=== PATIENT | male | born 1970 | race Caucasian/White ===

== ENCOUNTER 2017-12-19 06:39 | Observation (INO) ==
[2017-12-19] MEDS ORDERED: 0.9 % Sodium Chloride 500 ML IVC ONE (07:02)
[2017-12-19] MEDS ORDERED: Aspirin 81 MG TAB.CHEW PO ONE (07:02)
[2017-12-19] MEDS ORDERED: Ondansetron 4 MG/2 ML VIAL IVP ONE (07:02)
--- NOTE | 2017-12-19 07:25 | Emergency Department Note ---
Disposition Clinical Impression: Chest pain Qualifiers: Chest pain type: other chest pain Qualified Code(s): R07.89 - Other chest pain ; R07.8 - Other chest pain Disposition: Admitted As Inpatient Condition: Fair Chest Pain HPI - General Chief Complaint: ED Chest Pain Stated Complaint: CP Time Seen by Provider: 12/19/17 06:45 Source: patient Mode of arrival: private vehicle Limitations: no limitations Vital Signs Reviewed: Yes Nursing Notes Reviewed: Yes - History of Present Illness HPI Narrative: Patient arrives by private auto for eval of chest pain that began acutely at 3: 30 this AM. It woke him up. He was diaphoretic and "a little short of breath." He got out of bed and took a shower, then started getting ready for work. The pain did not worsen with exertion. It was at times worse with deep inspitration. Transient radiation of pain into left side of neck. Pain located in left upper chest - infraclavicular area. Not reproducible with palpation of chest or movement of LUE. No recent trauma / injury. He describes the pain now as "just a little bit of tightness." No pleuritic component at this time. Normal stress test in July 2016 per his report. No hx of cath or cabg. Pt complaint: chest pain Onset (ago): hour(s) (3:30am today) Duration: constant (now "just a little tight" per patient) Onset: during rest, awoke with symptoms Pain Location: left chest Severity: moderate Severity scale (1-10): 7 Quality: tightness, aching, heaviness, sharp Pain Radiation: neck (left jace-lateral) Improves with: nothing Worsens with: nothing Context: recent illness (URI this month, was better but has had dry cough x 2 days) Associated symptoms: Reports: nausea, diaphoresis, dyspnea ("A little bit earlier but none now."). Denies: vomiting Treatments prior to arrival chest pain: none - Related Data Home Medications Medication Instructions Recorded Confirmed Albuterol Sulfate [Albuterol 2 puff IH Q6HR PRN 01/04/15 01/04/15 Inhaler] Previous Rx's Medication Instructions Recorded Amoxicillin 875 mg PO BID #20 tablet 03/03/17 Promethazine/Codeine 5 ml PO QPM PRN #60 ml 12/04/17 [Phenergan/Codeine] Allergies Allergy/AdvReac Type Severity Reaction Status Date / Time No Known Allergies Allergy Verified 12/19/17 06:50 All systems ED: reviewed and negative except as stated. Review of Systems: As Per HPI Constitutional: Denies: fever, chills, weakness Eyes: Denies: vision change Cardiovascular: Reports: as per HPI, chest pain. Denies: palpitations, dyspnea on exertion, orthopnea, syncope Respiratory: Reports: as per HPI, cough, dyspnea. Denies: wheezes, hemoptysis, stridor, sputum production Gastrointestinal: Reports: as per HPI, nausea. Denies: abdominal pain, vomiting , diarrhea, constipation Musculoskeletal: Denies: back pain, joint swelling, arthralgia Neurological: Denies: headache, weakness, numbness, paresthesias, confusion, vertigo Hematological/Lymphatic: Denies: easy bleeding, easy bruising Chest Pain PMH - Past Medical History Medical history: Reports: COPD Psychiatric history: Reports: no psych history Prior Cardiac Testing/Procedures: Stress Test (July 2016 "Normal" per patient) - Social History Smoking Status: Never smoker Alcohol use: Reports: none Drug use: Reports: none Physical Exam - General Limitations: no limitations General appearance: alert, in no apparent distress - Head Head exam: atraumatic, normocephalic, normal inspection - Eye Eye exam: Present: normal appearance, PERRL. Absent: scleral icterus, conjunctival injection, periorbital swelling - ENT ENT exam: mucous membranes moist - Neck Neck exam: Present: normal inspection, full ROM, trachea midline - Chest Chest inspection: Present: normal inspection, symmetric chest wall rise. Absent : tenderness - Respiratory Respiratory exam: Present: normal lung sounds bilaterally. Absent: respiratory distress, wheezes, stridor, accessory muscle use, prolonged expiratory phase - Cardiovascular Cardiovascular exam: Present: normal rhythm, tachycardia, normal heart sounds. Absent: systolic murmur, diastolic murmur - Abdominal Exam Abdominal exam: Present: soft, Non-Tender. Absent: distention, guarding, rebound, rigidity, organomegaly, ascites, mass, pulsatile mass - Extremities Exam Extremities exam: Present: normal inspection, full ROM, normal capillary refill. Absent: pedal edema - Expanded Lower Extremity Exam Gait: observed and normal - Neurological Exam Neurological exam: Present: alert, oriented X3, CN II-XII intact, normal gait - Psychiatric Psychiatric exam: Present: normal affect, anxious - Skin Skin exam: Present: warm, dry, intact, normal color Course Course Narrative: EKG reviewed by Dr. Araujo. She states that it does not show a STEMI. Patient brought to room 16 for evaluation. He reports chest pain that began acutely at 3:30 this AM. It woke him up. He was diaphoretic and "a little short of breath." He got out of bed and took a shower, then started getting ready for work. The pain did not worsen with exertion. It was at times worse with deep inspitration. Transient radiation of pain into left side of neck. Pain located in left upper chest - infraclavicular area. Not reproducible with palpation of chest or movement of LUE. No recent trauma / injury. He describes the pain now as "just a little bit of tightness." No pleuritic component at this time. 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 Increased frequency of cough past 2 days. Non-productive, no hemoptysis. He has had no recent sugery / procedure. Well's score is 4.5. HR is 101. No personal or Fam hx of TAD or aneurysm, AAA or dissection. EKG done in triage, shows isolated ST elevation in AVR - 1mm with no reciprocal changes. Labs, fluids and meds ordered. CXR ordered. Case discussed with Dr. Najera. He has had face to face time with the patient and agrees with the assessment and plan. 08:22 still waiting for Troponin. Called lab to check ETA. Per Sajan, the line was down. He has restarted it and we should have results in about 20 min. Troponin is normal. Ddimer is normal. CXR normal. Patient to be admitted for r/ o. Hospitalist ramon. Vital Signs Temperature 98.2 F 12/19/17 06:48 Pulse Rate 101 12/19/17 06:48 Respiratory Rate 20 12/19/17 06:48 Blood Pressure 138/96 12/19/17 06:48 O2 Sat by Pulse Oximetry 99 12/19/17 06:48 Temperature 98.2 F 12/19/17 06:48 Pulse Rate 101 12/19/17 06:48 Respiratory Rate 20 12/19/17 06:48 Blood Pressure 138/96 12/19/17 06:48 O2 Sat by Pulse Oximetry 99 12/19/17 06:48 Chest Pain - Medical Records Medical records reviewed: Yes I reviewed the patient's medical records. - Lab Data Lab results reviewed: Yes I reviewed the patient's lab results. Lab results narrative: Laboratory Last Values WBC 9.0 K/mcL (4.3-11.1) 12/19/17 07:12 RBC 5.31 M/mcL (4.19-5.50) 12/19/17 07:12 Hgb 15.8 g/dL (12.9-16.9) 12/19/17 07:12 Hct 47.5 % (37.5-50.1) 12/19/17 07:12 MCV 89.5 fL (83.0-100.0) 12/19/17 07:12 MCH 29.8 pg (28.0-33.3) 12/19/17 07:12 MCHC 33.3 g/dL (31.6-35.5) 12/19/17 07:12 RDW 12.9 % (11.5-14.5) 12/19/17 07:12 Plt Count 268 K/mcL (140-400) 12/19/17 07:12 MPV 9.5 fL (9.4-12.4) 12/19/17 07:12 Immature Gran % 0.2 % (0-4) 12/19/17 07:12 Seg Neutrophils % 60.4 % 12/19/17 07:12 Lymphocytes % 28.3 % 12/19/17 07:12 Monocytes % 6.2 % 12/19/17 07:12 Eosinophils % 4.0 % 12/19/17 07:12 Basophils % 0.9 % 12/19/17 07:12 Neutrophils # 5.4 K/mcL (1.6-8.9) 12/19/17 07:12 Lymphocytes # 2.6 K/mcL (0.6-4.6) 12/19/17 07:12 Monocytes # 0.6 K/mcL (0.0-1.3) 12/19/17 07:12 Eosinophils # 0.4 K/mcL (0.0-0.6) 12/19/17 07:12 Basophils # 0.1 K/mcL (0.0-0.2) 12/19/17 07:12 D-Dimer 247 ng/mLFEU (0-500) 12/19/17 07:12 Sodium 136 mEq/L (136-145) 12/19/17 07:12 Potassium 3.9 mEq/L (3.5-5.1) 12/19/17 07:12 Chloride 108 mEq/L (98-107) H 12/19/17 07:12 Carbon Dioxide 21 mEq/L (23-29) L 12/19/17 07:12 BUN 19 mg/dL (6-20) 12/19/17 07:12 Creatinine 0.93 mg/dL (0.70-1.30) 12/19/17 07:12 Est GFR ( Amer) > 60 (> 60) 12/19/17 07:12 Est GFR (Non-Af Amer) > 60 (> 60) 12/19/17 07:12 BUN/Creatinine Ratio 20 (6-26) 12/19/17 07:12 Glucose 121 mg/dL (70-105) H 12/19/17 07:12 Calculated Osmolality 286 (280-300) 12/19/17 07:12 Calcium 9.4 mg/dL (8.6-10.3) 12/19/17 07:12 Total Bilirubin 0.4 mg/dL (0.3-1.0) 12/19/17 08:00 Direct Bilirubin 0.0 mg/dL (0.0-0.2) 12/19/17 08:00 Indirect Bilirubin 0.4 mg/dL (0.0-1.2) 12/19/17 08:00 AST 18 Units/L (13-39) 12/19/17 08:00 ALT 27 Units/L (7-52) 12/19/17 08:00 Alkaline Phosphatase 95 Units/L (34-104) 12/19/17 08:00 Troponin I < 0.03 ng/mL (< 0.04) 12/19/17 07:12 Serum Total Protein 7.2 g/dL (6.4-8.9) 12/19/17 08:00 Albumin 4.3 g/dL (3.5-5.7) 12/19/17 08:00 Globulin 2.9 g/dL (2.4-3.5) 12/19/17 08:00 Albumin/Globulin Ratio 1.5 (1.1-2.2) 12/19/17 08:00 Lipase 25 Units/L (11-82) 12/19/17 07:12 - Radiology Data Radiology results reviewed: Yes I reviewed the patient's radiology results. Chest X-Ray 12/19/17 07:02 IMPRESSION: No acute process. D/ / Ronald Montelongo MD / Ronald Montelongo MD Interpreting Provider: Ronald Montelongo MD - EKG Data EKG attestation: Yes I reviewed and interpreted this EKG. EKG shows normal: sinus rhythm Rate: tachycardia Rhythm: NSR Power/QRS: normal When compared to previous EKG there are: changes noted Interpretation: nonspecific ST-T wave changes (ST elevation in AVR) Heart Score - Score History: Moderately Suspicious EKG: Non Specific repolarisation Disturbance Age: 45-65 Risk Factors: 1-2 risk factors Troponin: 1-3x normal limit HEART Score Total: 5
[2017-12-19 07:26] LABS: Basophils # 0.1 K/mcL (0.0-0.2); Basophils % 0.9 %; Eosinophils # 0.4 K/mcL (0.0-0.6); Hematocrit 47.5 % (37.5-50.1); Hemoglobin 15.8 g/dL (12.9-16.9); Immature Granulocytes % 0.2 % (0-4); Lymphocytes # 2.6 K/mcL (0.6-4.6); Lymphocytes % 28.3 %; Mean Corpuscular HGB Conc 33.3 g/dL (31.6-35.5); Mean Corpuscular Hemoglobin 29.8 pg (28.0-33.3); Mean Corpuscular Volume 89.5 fL (83.0-100.0); Mean Platelet Volume 9.5 fL (9.4-12.4); Monocytes # 0.6 K/mcL (0.0-1.3); Monocytes % 6.2 %; Neutrophils # 5.4 K/mcL (1.6-8.9); Platelet Count 268 K/mcL (140-400); Red Blood Count 5.31 M/mcL (4.19-5.50); Red Cell Distribution Width 12.9 % (11.5-14.5); Segmented Neutrophils % 60.4 %
--- NOTE | 2017-12-19 07:46 | Emergency Department Note ---
Disposition Clinical Impression: Chest pain Qualifiers: Chest pain type: other chest pain Qualified Code(s): R07.89 - Other chest pain Disposition: Admitted As Inpatient Condition: Fair General Adult HPI - General Chief complaint: ED Chest Pain Stated complaint: CP Time Seen by Provider: 12/19/17 06:45 Source: patient Mode of arrival: private vehicle Limitations: no limitations - History of Present Illness Pain Scale: 7 - Related Data Home Medications Medication Instructions Recorded Confirmed Albuterol Sulfate [Proair Hfa] 2 puff IH Q6H PRN 12/19/17 12/19/17 Fluticasone Propionate Nasal 2 spr NS DAILY 12/19/17 12/19/17 [Flonase] Fluticasone/Vilanterol [Breo 2 puff IH DAILY 12/19/17 12/19/17 Ellipta 100-25 Mcg INH] Allergies Allergy/AdvReac Type Severity Reaction Status Date / Time No Known Allergies Allergy Verified 12/19/17 06:50 Past Medical History - Past Medical History Medical history: Reports: no medical history Psychiatric history: Reports: no psych history - Social History Smoking Status: Never smoker Smokeless Tobacco Status: No Alcohol use: Reports: none Drug use: Reports: none Physical Exam - General Limitations: no limitations General appearance: alert, in no apparent distress Course Vital Signs Temperature 98.2 F 12/19/17 06:48 Pulse Rate 101 12/19/17 06:48 Respiratory Rate 20 12/19/17 06:48 Blood Pressure 138/96 12/19/17 06:48 O2 Sat by Pulse Oximetry 99 12/19/17 06:48 Temperature 98.2 F 12/19/17 12:14 Pulse Rate 85 12/19/17 12:14 Respiratory Rate 16 12/19/17 12:14 Blood Pressure 121/80 12/19/17 12:14 O2 Sat by Pulse Oximetry 96 12/19/17 12:14 Oxygen Delivery Oxygen Delivery Room Air Medical Decision Making - Lab Data Result diagrams: 12/19/17 07:12 12/19/17 07:12 Lab Results 12/19/17 12/19/17 12/19/17 Range/Units 07:12 07:12 07:12 WBC 9.0 (4.3-11.1) K/mcL RBC 5.31 (4.19-5.50) M/mcL Hgb 15.8 (12.9-16.9) g/dL Hct 47.5 (37.5-50.1) % MCV 89.5 (83.0-100.0) fL MCH 29.8 (28.0-33.3) pg MCHC 33.3 (31.6-35.5) g/dL RDW 12.9 (11.5-14.5) % Plt Count 268 (140-400) K/mcL MPV 9.5 (9.4-12.4) fL Immature Gran % 0.2 (0-4) % Seg Neutrophils % 60.4 % Lymphocytes % 28.3 % Monocytes % 6.2 % Eosinophils % 4.0 % Basophils % 0.9 % Neutrophils # 5.4 (1.6-8.9) K/mcL Lymphocytes # 2.6 (0.6-4.6) K/mcL Monocytes # 0.6 (0.0-1.3) K/mcL Eosinophils # 0.4 (0.0-0.6) K/mcL Basophils # 0.1 (0.0-0.2) K/mcL D-Dimer 247 (0-500) ng/mLFEU Sodium (136-145) mEq/L Potassium (3.5-5.1) mEq/L Chloride (98-107) mEq/L Carbon Dioxide (23-29) mEq/L BUN (6-20) mg/dL Creatinine (0.70-1.30) mg/dL Est GFR ( Amer) (> 60) Est GFR (Non-Af Amer) (> 60) BUN/Creatinine Ratio (6-26) Glucose (70-105) mg/dL Calculated Osmolality (280-300) Calcium (8.6-10.3) mg/dL Total Bilirubin (0.3-1.0) mg/dL Direct Bilirubin (0.0-0.2) mg/dL Indirect Bilirubin (0.0-1.2) mg/dL AST (13-39) Units/L ALT (7-52) Units/L Alkaline Phosphatase (34-104) Units/L Troponin I (< 0.04) ng/mL Serum Total Protein (6.4-8.9) g/dL Albumin (3.5-5.7) g/dL Globulin (2.4-3.5) g/dL Albumin/Globulin Ratio (1.1-2.2) Lipase 25 (11-82) Units/L 12/19/17 12/19/17 Range/Units 07:12 08:00 WBC (4.3-11.1) K/mcL RBC (4.19-5.50) M/mcL Hgb (12.9-16.9) g/dL Hct (37.5-50.1) % MCV (83.0-100.0) fL MCH (28.0-33.3) pg MCHC (31.6-35.5) g/dL RDW (11.5-14.5) % Plt Count (140-400) K/mcL MPV (9.4-12.4) fL Immature Gran % (0-4) % Seg Neutrophils % % Lymphocytes % % Monocytes % % Eosinophils % % Basophils % % Neutrophils # (1.6-8.9) K/mcL Lymphocytes # (0.6-4.6) K/mcL Monocytes # (0.0-1.3) K/mcL Eosinophils # (0.0-0.6) K/mcL Basophils # (0.0-0.2) K/mcL D-Dimer (0-500) ng/mLFEU Sodium 136 (136-145) mEq/L Potassium 3.9 (3.5-5.1) mEq/L Chloride 108 H (98-107) mEq/L Carbon Dioxide 21 L (23-29) mEq/L BUN 19 (6-20) mg/dL Creatinine 0.93 (0.70-1.30) mg/dL Est GFR ( Amer) > 60 (> 60) Est GFR (Non-Af Amer) > 60 (> 60) BUN/Creatinine Ratio 20 (6-26) Glucose 121 H (70-105) mg/dL Calculated Osmolality 286 (280-300) Calcium 9.4 (8.6-10.3) mg/dL Total Bilirubin 0.4 (0.3-1.0) mg/dL Direct Bilirubin 0.0 (0.0-0.2) mg/dL Indirect Bilirubin 0.4 (0.0-1.2) mg/dL AST 18 (13-39) Units/L ALT 27 (7-52) Units/L Alkaline Phosphatase 95 (34-104) Units/L Troponin I < 0.03 (< 0.04) ng/mL Serum Total Protein 7.2 (6.4-8.9) g/dL Albumin 4.3 (3.5-5.7) g/dL Globulin 2.9 (2.4-3.5) g/dL Albumin/Globulin Ratio 1.5 (1.1-2.2) Lipase (11-82) Units/L Attestation Statement - Attestation Attestation: I examined this patient and my medical decision-making was reviewed with the LIAISON OFFICER/PA/Advanced Practice Nurse/Resident Physician. I agree with the documented findings, disposition and treatment plan as described except to the extent set forth below. I did see the patient is spoke with him and examine him and also spoke with his daughter who is in the room and the patient does have chest discomfort radiating to the left neck with associated diaphoresis and dyspnea which woke him from sleep at 3:30 and has been constant since that time. No pleuritic aspect. No radiation to the back. No exertional component. Does have some mild swelling around the ankles according to the patient which is not new for him. He has had what he calls a chest cold for the last 1 month and has had similar intermittent symptoms of chest discomfort during this time. I did review his EKG and this does show sinus tachycardia with a rate of 101, Q waves inferiorly as well as less than [address] elevation in lead aVR and I did look at a previous EKG which does not show any change in aVR or nightly showing that time from June [id number] so we are awaiting the troponin testing the patient will be admitted to the hospital. [id number]
[2017-12-19 08:30] LABS: Albumin 4.3 g/dL (3.5-5.7); Albumin/Globulin Ratio 1.5 (1.1-2.2); Bilirubin,Indirect 0.4 mg/dL (0.0-1.2); Bilirubin,Total 0.4 mg/dL (0.3-1.0); Globulin 2.9 g/dL (2.4-3.5); Total Protein 7.2 g/dL (6.4-8.9)
[2017-12-19 08:42] LABS: BUN/Creatinine Ratio 20 (6-26); Blood Urea Nitrogen 19 mg/dL (6-20); Calcium 9.4 mg/dL (8.6-10.3); Carbon Dioxide 21 mEq/L (23-29); Chloride 108 mEq/L (98-107); Glucose 121 mg/dL (70-105); Osmolality,Calculated 286 (280-300); Potassium 3.9 mEq/L (3.5-5.1); Sodium 136 mEq/L (136-145); eGFR For Non-African Americans > 60 (> 60)
[2017-12-19 09:00] LABS: Troponin I < 0.03 ng/mL (< 0.04)
[2017-12-19] MEDS ORDERED: Naloxone 0.4 MG/ML INJ IVP PRN (11:44)
[2017-12-19] MEDS: (Fluticasone/Vilanterol [Breo Ellipta 100-25 Mcg Inh] IH SCH (12:22)
[2017-12-19] MEDS: Fluticasone Propionate Nasal 50 MCG/SPRAY BOTTLE NS SCH (12:56)
--- NOTE | 2017-12-19 13:25 | Internal Med History&Physical ---
Date of Encounter: 12/19/17 Time of Encounter: 12:19 Internal Medicine - H&P: HPI Chief complaint: chest pain Admitted From: Home History of present illness: Mr. Bowie is a 47 year old male with past medical history of COPD, asthma who came in complaining of chest pain which started at 3:30 AM that woke him up. He had associated diaphoresis and mentioned that he was drenched in sweat. Pain was located on the left side of his chest which radiated to his neck and mildly on his left arm. It was discomfort and heaviness feeling. Somewhat worsens with deep inspiration. About 7/10 in intensity. He has associated my shortness of breath. He did not take any medication at home. Chest pain continued until the time he had to work at 5:00. He also continued to have significant diaphoresis so he came to ER. He recently was treated for upper respiratory tract infection about 3-4 weeks ago. He has history of CP in past and had Stress ECHO last year which was negative for ischemia. He has not had any chest pain since last year. He denies any lightheadedness or palpitation. He complains of some tingling in his fingertips and toes, some dizziness and blurry vision on and off for past few months and wonders if he is diabetic. Currently does not have the diagnosis of diabetes. He has significant family history with 2 uncles who had MIs in their 40s, father had NV in 50. He is nonsmoker. Past Med Surg Social Fam HX - Past Medical History Medical history: no medical history Psychiatric history: no psych history - Past Surgical History Surgical History: non-contributory Additional surgical history: perianal fistulectomy - Social History Smoking Status: Never smoker Smokeless Tobacco Status: No Alcohol use: none Drug use: none Current living situation: Home - Independent Activity Level: Independent ambulation - Family History Mother Living Status: Still Living Hx Family Cardiac Disorders: Yes (NV HTN) Father Living Status: Still Living Hx Family Cardiac Disorders: Yes (NV triple AAA) Maternal Grandfather Living Status: Hx Family Cardiac Disorders: Yes (NV) Hx Family Neurologic Disorders: Yes (CVA) Internal Medicine - H&P: Meds Albuterol Sulfate [Proair Hfa] 2 puff IH Q6H PRN 12/19/17 [History] Fluticasone Propionate Nasal [Flonase] 2 spr NS DAILY 12/19/17 [History] Fluticasone/Vilanterol [Breo Ellipta 100-25 Mcg INH] 2 puff IH DAILY 12/19/17 [ History] 3 Allergy/AdvReac Type Severity Reaction Status Date / Time No Known Allergies Allergy Verified 12/19/17 06:50 All Systems PM: A 10-system review of systems was performed and is negative for pertinent findings except as documented above in the HPI. - Constitutional Vitals: Temp Pulse Resp BP Pulse Ox 98.2 F 85 16 121/80 96 12/19/17 12:14 12/19/17 12:14 12/19/17 12:14 12/19/17 12:14 12/19/17 12:14 General appearance: Present: A&O X 3, no acute distress Exam: Constitutional: Vitals as noted. Conversant. No Apparent Distress. Well grommed. Obese. No obvious deformities. Eyes exam: Sclera white, conjunctiva clear, no lid lag, PEARLA. ENT exam: Grossly normal hearing. Nasophargeal and Oropharyngeal exam unremarkable. Moist mucus membranes. No JVD, carotid bruit, no cervical lymphadenopathy. no thyromegaly or mass. Respiratory exam: Clear to auscultation bilaterally. No accessory muscle use, rales, rhonchi or wheezes Cardiovascular exam: RRR, +S1, +S2. no murmur, gallop, rubs. No chest wall tenderness GI/Abdominal exam: Soft, Non-tender, Non-distended, normal bowel sounds, soft, no peritoneal signs. no orgenomegaly or mass appreciated. no hernia. Musculoskeletal exam: full ROM, no atrophy or deformity noted. no edema or cyanosis, warm, pulses palpable and symmetrical in UE/LE. no calf tenderness. Neurological exam: AO X3, CN II-XII grossly intact, grossly normal motor and sensory exam. Skin exam: No skin rash, lesions or ulcers noted. no purpura or ecchymosis. Pych: Good insight and judgment. Intact memory. AOx3. Mood and affect Internal Med - H&P Results - Labs CBC & Chem 7: 12/19/17 07:12 12/19/17 07:12 Labs: Cardiac Enzymes 12/19/17 Range/Units 12:45 Troponin I < 0.03 (< 0.04) ng/mL - EKG Data -: EKG Interpreted by Myself EKG shows normal: sinus rhythm Rate: normal, tachycardia (ST elevated in aVR. No reciprocal changes noted) - Assessment and plan (1) Chest pain Current Visit: Yes Status: Acute Assessment and plan: Atypical chest pain - Troponin negative x2. EKG with non-specific changes(ST elevation in aVR, HR 101). Received ASA in ER. Currently chest pain free. CXR unremarkable. - Non-smoker. Significant Family history of early NV. stress echo last year unremarkable. - Will trend one more troponin - Likely needs stress test. Will consult cardiology for appropriate stress test. Qualifiers: Chest pain type: precordial pain Qualified Code(s): R07.2 - Precordial pain (2) COPD (chronic obstructive pulmonary disease) Current Visit: Yes Status: Acute Assessment and plan: Has component of both COPD and allergic asthma - Currently well controlled. No signs of exacerbation. Is being followed by pulmonology as outpatient. - Continue home Breo and as needed albuterol Qualifiers: Qualified Code(s): J44.9 - Chronic obstructive pulmonary disease, unspecified (3) Asthma Current Visit: Yes Status: Acute Qualifiers: Qualified Code(s): J45.909 - Unspecified asthma, uncomplicated (4) Hyperglycemia Current Visit: Yes Status: Acute Assessment and plan: - Will obtain HbA1c and Lipid profile to evaluate for additional risk factors. - Time Spent With Patient Total time spent is greater than 50% in coordination of care (as documented) at patient's floor/unit and/or counseling patient:
[2017-12-19] MEDS: Acetaminophen 325 MG TABLET PO PRN ×2 (14:43→20:03)
[2017-12-20] MEDS ORDERED: Regadenoson 0.4 MG/5 ML SYRINGE IVP ONE (05:49)
[2017-12-20 08:14] LABS: Alanine Aminotransferase 25 Units/L (7-52); Albumin 3.7 g/dL (3.5-5.7); Albumin/Globulin Ratio 1.2 (1.1-2.2); Alkaline Phosphatase 82 Units/L (34-104); Aspartate Amino Transferase 22 Units/L (13-39); BUN/Creatinine Ratio 16 (6-26); Bilirubin,Total 0.5 mg/dL (0.3-1.0); Blood Urea Nitrogen 15 mg/dL (6-20); Calcium 9.2 mg/dL (8.6-10.3); Carbon Dioxide 16 mEq/L (23-29); Chloride 109 mEq/L (98-107); Chol/HDL Ratio 6.3 (0-4.9); Cholesterol 202 mg/dL (< 200); Globulin 3.1 g/dL (2.4-3.5); Glucose 91 mg/dL (70-105); HDL Cholesterol 32 mg/dL (40-59); LDL Cholesterol,Calculated 137 mg/dL (0-99); Osmolality,Calculated 286 (280-300); Potassium 4.4 mEq/L (3.5-5.1); Sodium 138 mEq/L (136-145); Total Protein 6.8 g/dL (6.4-8.9); Triglycerides 167 mg/dL (< 150); eGFR For Non-African Americans > 60 (> 60)
[2017-12-20] MEDS: Fluticasone Propionate Nasal 50 MCG/SPRAY BOTTLE NS SCH (10:23)
--- NOTE | 2017-12-20 12:01 | Internal Med Progress Note ---
Hospitalist Progress Note - Encounter Date of Encounter: 12/20/17 Time of Encounter: 11:54 - Exam Vitals: Temp Pulse Resp BP Pulse Ox 98.5 F 89 16 121/82 95 12/20/17 11:46 12/20/17 11:46 12/20/17 11:46 12/20/17 11:46 12/20/17 11:46 Exam: PHYSICAL EXAMINATION: GENERAL: The patient is a well-developed, well-nourished male in no apparent distress. He is alert and oriented x3. HEENT: Head is normocephalic and atraumatic. Extraocular muscles are intact. Pupils are equal, round, and reactive to light and accommodation. NECK: Supple. No carotid bruits. No lymphadenopathy or thyromegaly. LUNGS: Clear to auscultation. CHEST: Left pectoral tenderness to palpation along left sternal border. Mild increase in pain with range of motion HEART: Regular rate and rhythm, S1, S2 without murmur rubs or gallops. ABDOMEN: Soft, nontender, and nondistended. Positive bowel sounds. No hepatosplenomegaly was noted. EXTREMITIES: Without any cyanosis, clubbing, rash, lesions or edema. NEUROLOGIC: No facial droop or slurred speech SKIN: No ulceration or induration present. - Assessment and Plan (1) Chest pain Current Visit: Yes Status: Acute Assessment and Plan: Atypical chest pain. left sided, infraclavicular pain radiating to the left neck However given his presentation with diaphoresis, shortness of breath, dizziness , palpitations and given his family history we will rule out ACS Patient reports stress test 2016 negative for ischemia; denies ever having a heart catheter for echocardiogram Chest x-ray negative for acute process Dimer-247 - Serial troponins negative 3 - Underwent stress test this morning-results pending - TTE pending completion - Found to have hyperlipidemia, start statin now - Start daily 81 mg aspirin now - 12/20--currently chest pain-free, resting comfortably in bed on the room air. Hemodynamically stable. Awaiting results of stress test and echocardiogram, continue tele, low suspicion for ACS (2) Asthma Current Visit: Yes Status: Acute Assessment and Plan: per hx recent exacerbation with increasing dyspnea and dry-non productive cough continue POLO and steroid/LABA combo (3) COPD (chronic obstructive pulmonary disease) Current Visit: Yes Status: Acute Assessment and Plan: Has component of both COPD and allergic asthma - Currently well controlled. No signs of exacerbation - Continue following pulmonology as outpatient. - Continue home Breo and as needed albuterol (4) Hyperglycemia Current Visit: Yes Status: Acute Assessment and Plan: A1C pending - Time Spent with Patient Total time spent is greater than 50% in coordination of care (as documented) at patient's floor/unit and/or counseling patient: less than 15 minutes Plan of Care Discussed with: patient Internal Medicine: Result - Labs CBC & Chem 7: 12/19/17 07:12 12/20/17 06:14 Labs: BMP 12/20/17 06:14 Sodium 138 Potassium 4.4 Chloride 109 H Carbon Dioxide 16 L BUN 15 Creatinine 0.94 Glucose 91 Calcium 9.2 Cardiac Enzymes 12/19/17 Range/Units 12:45 Troponin I < 0.03 (< 0.04) ng/mL Liver Function 12/20/17 Range/Units 06:14 Total Bilirubin 0.5 (0.3-1.0) mg/dL AST 22 (13-39) Units/L ALT 25 (7-52) Units/L Alkaline Phosphatase 82 (34-104) Units/L Albumin 3.7 (3.5-5.7) g/dL - ABG Interpretation ABG results: PT/INR, D-dimer D-Dimer 247 ng/mLFEU (0-500) 12/19/17 07:12 Consult Discharge Plan - Plan Referrals: Saul Helton MD [Primary Care Provider] - (1) Chest pain Qualifiers: Chest pain type: precordial pain Qualified Code(s): R07.2 - Precordial pain (2) Asthma Qualifiers: Qualified Code(s): J45.909 - Unspecified asthma, uncomplicated (3) COPD (chronic obstructive pulmonary disease) Qualifiers: Qualified Code(s): J44.9 - Chronic obstructive pulmonary disease, unspecified
[2017-12-20] MEDS: (Fluticasone/Vilanterol [Breo Ellipta 100-25 Mcg Inh] IH SCH (12:02)
[2017-12-20] MEDS: *HR* Enoxaparin 40 MG/0.4 ML SYRINGE SQ SCH (13:11)
[2017-12-20] MEDS: Aspirin 81 MG TAB.CHEW PO SCH (13:12)
[2017-12-20 13:13] LABS: Folate 10.3 ng/mL (3.0-16.0)
[2017-12-20] MEDS ORDERED: Perflutren Lipid Microsphere 1.3 ML in 0.9 % Sodium Chloride 8.7 ML IVP ONE (15:08)
[2017-12-20] MEDS ORDERED: Perflutren Lipid Microsphere 2 ML VIAL ONE (15:09)
[2017-12-21] MEDS: *HR* Enoxaparin 40 MG/0.4 ML SYRINGE SQ SCH (06:13)
[2017-12-21 08:04] VITALS: BP 106/72
[2017-12-21] MEDS: Fluticasone Propionate Nasal 50 MCG/SPRAY BOTTLE NS SCH (09:47)
[2017-12-21] MEDS: Aspirin 81 MG TAB.CHEW PO SCH (09:48)
[2017-12-21] MEDS: (Fluticasone/Vilanterol [Breo Ellipta 100-25 Mcg Inh] IH SCH (09:50)
--- NOTE | 2017-12-21 09:58 | Discharge Summary ---
- NOTES TO OUTPATIENT PROVIDER Notes to Outpatient Provider: No studies pending, basic discharge follow-up. Found to have hyperlipidemia with LDL of 137, VLDL 33, HDL 32, cholesterol/HDL ratio 6.3, total cholesterol 202 and triglycerides 167. --Did not prescribe statin at this time, discussed dietary and lifestyle modifications as well as weight loss. Suggest 81 mg daily aspirin. Orders not resulted at time of discharge: Pending orders 12/19/17 13:31 NM quinten perf SPECT multi [NM] Routine 12/20/17 06:14 Hgb A1C AM 0400 12/20/17 12:07 Vitamin D 1,25 Dihydroxy Routine Date of Encounter: 12/21/17 Time of Encounter: 09:55 - Discharge Diagnosis (1) Chest pain Priority: Primary Status: Acute Assessment and Plan: Atypical chest pain. left sided, infraclavicular pain radiating to the left neck However given his presentation with diaphoresis, shortness of breath, dizziness , palpitations and given his family history we will rule out ACS Patient reports stress test 2016 negative for ischemia; denies ever having a heart catheter for echocardiogram Chest x-ray negative for acute process Dimer-247 - Serial troponins negative 3 - Underwent stress test this morning-results pending - TTE pending completion - Found to have hyperlipidemia, start statin now - Start daily 81 mg aspirin now - 12/20--currently chest pain-free, resting comfortably in bed on the room air. Hemodynamically stable. Awaiting results of stress test and echocardiogram, continue tele, low suspicion for ACS 12/21/17--ACS ruled out, serial troponins negative 3, TTE grossly normal, stress test negative for ischemia or perfusion defect. Chest pain has subsided. Likely musculoskeletal causes patient reports that he is recently lifting a washing machine by himself. Instructed to follow-up with PCP within 1 week of discharge. Qualifiers: Chest pain type: precordial pain Qualified Code(s): R07.2 - Precordial pain (2) Asthma Priority: Secondary Status: Acute Qualifiers: Qualified Code(s): J45.909 - Unspecified asthma, uncomplicated (3) COPD (chronic obstructive pulmonary disease) Priority: Secondary Status: Acute Qualifiers: Qualified Code(s): J44.9 - Chronic obstructive pulmonary disease, unspecified (4) Hyperglycemia Priority: Secondary Status: Acute Hospital course: Mr. Bowie is a 47 year old male presented with atypical chest pain with pain left sided and infraclavicular radiating to left neck. This occurred days after heavy physical activity including lifting a washer/dryer. However, he was presenting with diaphoresis and shortness of breath and dizziness as well so ACS rule out implemented. Serial troponins found to be negative 3, stress test negative for ischemia, echocardiogram grossly normal. Throughout the stay he was found to have hyperlipidemia. Discussed lifestyle modifications, weight loss and dietary changes. Start on 81 mg aspirin daily. Instructed to follow- up with PCP with 1 week of discharge. Instructed to return to the ED should chest pain/diaphoresis, shortness of breath or dizziness returned. Patient verbalizes understanding and denies any further questions. Discharge discussed with: patient, nurse - Time Spent with Patient Total time spent providing and/or coordinating discharge services: Less than 30 minutes - Discharge Medications Home Medications: Albuterol Sulfate [Proair Hfa] 2 puff IH Q6H PRN 12/19/17 [History] Fluticasone Propionate Nasal [Flonase] 2 spr NS DAILY 12/19/17 [History] Fluticasone/Vilanterol [Breo Ellipta 100-25 Mcg INH] 2 puff IH DAILY 12/19/17 [ History] Aspirin 81 mg PO DAILY tab.chew 12/21/17 [Rx] Allergies/Adverse Reactions: 3 Allergy/AdvReac Type Severity Reaction Status Date / Time No Known Allergies Allergy Verified 12/19/17 06:50 Date of admission: 12/19/17 11:20 Primary care physician: Saul Helton MD Discharging clinician: Robin Hernández Anticipated date of discharge: 12/21/17 - Constitutional Vitals: Temp Pulse Resp BP Pulse Ox 98.3 F 78 17 106/72 92 12/21/17 08:03 12/21/17 08:03 12/21/17 08:03 12/21/17 08:03 12/21/17 08:03 General appearance: Present: A&O X 3, no acute distress Exam: PHYSICAL EXAMINATION: GENERAL: The patient is a well-developed, well-nourished male in no apparent distress. He is alert and oriented x3. HEENT: Head is normocephalic and atraumatic. Extraocular muscles are intact. Pupils are equal, round, and reactive to light and accommodation. NECK: Supple. No carotid bruits. No lymphadenopathy or thyromegaly. LUNGS: Clear to auscultation. CHEST: Left pectoral tenderness to palpation along left sternal border. Mild increase in pain with range of motion HEART: RRR, S1, S2 without murmur rubs or gallops. ABDOMEN: Soft, nontender, and nondistended. Positive bowel sounds. No hepatosplenomegaly was noted. EXTREMITIES: Without any cyanosis, clubbing, rash, lesions or edema. NEUROLOGIC: No facial droop or slurred speech SKIN: No ulceration or induration present. - Patient Status Disposition: Home, Self-Care Condition: Fair Functional capacity at discharge: independent ambulation Overall status at discharge: patient is back to baseline - Discharge Instructions Instructions: Chest Pain (DC) Follow Up With: Saul Helton MD [Primary Care Provider] - - Diet and Activity Activity: increase activity as tolerated, resume usual activities as tolerated Diet: low fat, low cholesterol, low salt diet
[2017-12-21 10:38] LABS: Estimated Average Glucose 120 mg/dl; Hemoglobin A1C 5.8 %
--- NOTE | 2017-12-21 14:57 | Electrocardiograph Report ---
[facility] Test Date: 2017-12-19 Pat Name: Jose Bowie Department: 104 Room: 3B53 Gender: M Feed [employer]: : 1970 Requested By: Sade Adams Order Number: [id number] Reading MD: Jorge Newman Measurements Intervals [place] Rate: 101 P: 59 DC: 179 QRS: -12 QRSD: 98 T: 54 QT: 335 QTc: 393 Interpretive Statements SINUS TACHYCARDIA ABNORMAL RHYTHM ECG Electronically Signed On 12-21-2017 14:55:39 EDT by Jorge Newman
== END 2017-12-21 11:20 | disposition home or self-care (01) ==
LOC: 3BNU 06:39 → EMEROOARM 06:39 → 3BNU 11:49
PROVIDERS: ADMIT Internal Medicine; ATTEND Internal Medicine